=== PATIENT | female | born 1990 | race Caucasian/White ===

== ENCOUNTER 2019-05-16 16:29 | Emergency (ER) | payer SELFPAY ==
[~2019-05-16] VITALS: Ht 172.7 cm; Wt 58.5 kg
[2019-05-16 16:44] VITALS: Ht 172.7 cm; Wt 58.5 kg
[2019-05-16 18:49] VITALS: BP 107/67
== END 2019-05-16 18:49 | disposition home or self-care (01) ==
LOC: ED 16:29
DX: S06.0X0A Concussion without loss of consciousness, initial encounter (principal); W01.198A Fall on same level from slipping, tripping and stumbling with subsequent striking against other object, initial encounter; Y93.89 Activity, other specified; Y92.89 Other specified places as the place of occurrence of the external cause; Y99.8 Other external cause status
CPT/HCPCS: Q0162